=== PATIENT | female | born 1975 | race Caucasian/White ===

== ENCOUNTER → 2017-12-14 | Outpatient (CLI) | payer MEDICARE, OTHER ==
--- NOTE | 2017-12-15 15:45 | NM ---
EXAMINATION TYPE: NM DatScan Brain SPECT DATE OF EXAM: 12/14/2017 COMPARISON: Correlation CT head 05/14/2015 HISTORY: 42-year-old female with tremors TECHNIQUE: 10 drops of Lugol's solution was administered 1 hour prior to injection as a thyroid bloc maty agent. After the administration of 4.48 mCi I-123 Ioflupane DaTscan. Images obtained 3 hours p ost injection. SPECT images of the brain were acquired with axial and coronal reconstructions. FINDINGS: There is normal background activity and normal symmetrical, parietal activity. IMPRESSION: The normal appearance is against a diagnosis of idiopathic Parkinson's disease or a parkinsonian synd yolette. This pattern is seen in healthy individuals and also patient's with essential tremor, drug-bernice tim Parkinsonism, and vascular pseudoparkinsonism.
== END | disposition home or self-care (01) ==
LOC: RADNMMAIN 10:39
PROVIDERS: ATTEND Psychiatry & Neurology Neurology
DX: G25.0 Essential tremor (principal)
CPT/HCPCS: 78607; A9584

== ENCOUNTER → 2018-04-03 | Outpatient (CLI) | payer MEDICARE, OTHER ==
--- NOTE | 2018-04-03 10:57 | CT ---
EXAMINATION TYPE: CT lumbar spine wo con DATE OF EXAM: 04/03/2018 COMPARISON: HISTORY: Low back pain CT DLP: 1402.0 mGycm CONTRAST: None TECHNIQUE: CT of the lumbar spine is performed on a spiral scan at 3 mm thick sections. Reconstructed images are performed in the coronal and sagittal planes. FINDINGS: T12-L1: No focal disc herniation or significant disc bulge is evident. No spinal canal stenosis or neural foraminal stenosis is present. L1-L2: No focal disc herniation or significant disc bulge is evident. No spinal canal stenosis or n eural foraminal stenosis is present L2-L3: No focal disc herniation or significant disc bulge is evident. No spinal canal stenosis or n eural foraminal stenosis is present L3-L4: No focal disc herniation or significant disc bulge is evident. No spinal canal stenosis or n eural foraminal stenosis is present L4-L5: Disc bulge is present through the L4-5 level. This may be slightly greater into the left parac entral left lateral direction. No AP spinal canal stenosis is present. Minimal neural foraminal narro wing on the left is present. L5-S1: No focal disc herniation or significant disc bulge is evident. No spinal canal stenosis or n eural foraminal stenosis is present Vertebral alignment appears normal. Vacuum joint space phenomenon at the sacroiliac joints is present bilaterally. IMPRESSION: Mild asymmetric disc bulging into the left paracentral region L4-5. No spinal canal stenosis or anil inal stenosis is present
--- NOTE | 2018-04-03 11:28 | CT ---
EXAMINATION TYPE: CT cervical spine wo con DATE OF EXAM: 04/03/2018 COMPARISON: None HISTORY: Neck pain CT DLP: 382.7 mGycm CONTRAST: None CT of the cervical spine is performed in the axial plane at 2 mm thick sections. Reconstructed image s in the coronal, and sagittal plane are reviewed on the computer. No acute fractures are evident. Vertebral body alignment is normal. Disc heights are preserved. There is some central disc bulging C5-6 with mild anterior thecal sac co mpression. No cord contact is evident. Vertebral body heights are preserved. No spinal canal stenosis is evident. There is some anterior vertebral body spurring to mild degree so me anterior longitudinal ligament calcification present C3-3 and C5-6. No neural foraminal stenosis is evident. IMPRESSIONS: 1. Mild central disc bulge C5-6 without spinal canal stenosis.
== END | disposition home or self-care (01) ==
LOC: RADCTMAIN 09:30
PROVIDERS: ATTEND Psychiatry & Neurology Neurology
DX: M51.27 Other intervertebral disc displacement, lumbosacral region (principal); M50.222 Other cervical disc displacement at C5-C6 level; Z88.8 Allergy status to other drugs, medicaments and biological substances; Z91.040 Latex allergy status
CPT/HCPCS: 72125; 72131

== ENCOUNTER → 2018-12-06 | Outpatient (CLI) | payer MEDICARE, OTHER ==
--- NOTE | 2018-12-06 08:47 | CT ---
EXAMINATION TYPE: CT brain wo con DATE OF EXAM: 12/06/2018 COMPARISON: 05/14/2015 HISTORY: Seizures CT DLP: 1121 mGycm. Automated Exposure Control for Dose Reduction was Utilized. TECHNIQUE: CT scan of the head is performed without contrast. FINDINGS: There is no acute intracranial hemorrhage, mass effect, or midline shift identified. No s uspicious extra-axial fluid collection. The ventricles and sulci are within normal limits in size. The globes are intact and the visualized sinuses are clear. IMPRESSION: No acute intracranial hemorrhage, mass effect, or midline shift is seen. Exam is [facility] ed from 05/14/2015.
== END | disposition home or self-care (01) ==
LOC: RADCTMAIN 07:52
PROVIDERS: ATTEND Psychiatry & Neurology Neurology
DX: R56.9 Unspecified convulsions (principal); Z91.040 Latex allergy status; Z88.8 Allergy status to other drugs, medicaments and biological substances; Z91.018 Allergy to other foods
CPT/HCPCS: 70450

== ENCOUNTER → 2019-01-23 | Outpatient (CLI) | payer MEDICARE, OTHER | END | disposition home or self-care (01) | LOC: LABWHC1 12:28 | PROVIDERS: ATTEND Otolaryngology | DX: H93.19 Tinnitus, unspecified ear (principal); H91.90 Unspecified hearing loss, unspecified ear | CPT/HCPCS: 36415; 82565; 84520 ==

== ENCOUNTER → 2019-01-26 | Outpatient (CLI) | payer MEDICARE, OTHER ==
--- NOTE | 2019-01-26 10:43 | CT ---
EXAMINATION TYPE: CT iac wo/w con DATE OF EXAM: 01/26/2019 COMPARISON: CT brain dated 12/06/2018 HISTORY: Left ear pain x 3-[address] DLP: 364 mGycm. Automated Exposure Control for Dose Reduction was Utilized. TECHNIQUE: CT scan of internal auditory canal is performed without contrast, thin cut axial images ar e obtained, coronal reformatted images are also reviewed. FINDINGS: The external auditory canals are patent bilaterally. Left mastoid air cells show no evidenc e of abnormal opacification. There is a scant amount of mucosal thickening in the posterior inferior right mastoid air cells. Scant amount of mucosal thickening is also seen within the ethmoid sinuses. Remaining visualized paranasal sinuses are well aerated. The middle ear ossicles are symmetric and unremarkable. There is no evidence of suspicious surroundi ng soft tissue density to suggest cholesteatoma. The scutum is preserved bilaterally. The cochlea a nd the semicircular canals are symmetric and unremarkable. Vestibular aqueduct and internal carotid canal appear unremarkable. Osseous covering of the right superior semicircular canal is thinner than on the left however there is no dehiscence seen. Temporomandibular joints are maintained bilaterally. Visualized portion brain parenchyma is felt wit hin normal limits. No abnormal postcontrast enhancement. IMPRESSION: No significant abnormality seen to account for patient's symptoms. No evidence of middle ear effusion, cholesteatoma, or mass. Scant amount of fluid is incidentally noted within the inferio r posterior right mastoid air cells.
== END | disposition home or self-care (01) ==
LOC: RADCTMAIN 09:33
PROVIDERS: ATTEND Otolaryngology
DX: H93.19 Tinnitus, unspecified ear (principal); H91.90 Unspecified hearing loss, unspecified ear
CPT/HCPCS: 70482; Q9967

== ENCOUNTER 2023-07-08 06:07 | Day surgery (SDC) | payer MEDICARE, OTHER ==
[2023-07-05 15:21] VITALS: BMI 34.2
[~2023-07-08 06:07] MED LIST: LACTATED RINGERS 1,000 ML IV SCH
[2023-07-08 06:56] VITALS: RESP 16; TEMP 97.6
[2023-07-08 06:58] LABS: Glucose,Whole Blood 75 mg/dL (70-110)
[2023-07-08] MEDS ORDERED: LIDOCAINE 1% INJ 10MG/ML (20 ML MDV) ONE (08:03)
[2023-07-08] MEDS ORDERED: MIDAZOLAM 2 MG/2 ML VIAL ONE (08:03)
[2023-07-08] MEDS ORDERED: PROPOFOL 10 MG/ML 20 ML VIAL IV ONE (08:03)
--- NOTE | 2023-07-08 08:27 | P.PCN ---
Date of Procedure: 07/08/23 Procedure(s) Performed: Brief history: Patient is a pleasant 48-year-old white female scheduled for an elective upper endoscopy as well as colonoscopy as a part of evaluation of GERD/change in bowel habits and prior history of colon polyps. She is presently on Protonix 40 mg daily. Procedure performed: Esophagogastroduodenoscopy with biopsy Colonoscopy with snare polypectomy. Preoperative diagnosis: GERD/abdominal pain Change in bowel with the history of colon polyps Anesthesia: MAC Procedure: After informed consent was obtained from the patient was brought into the endoscopy unit and IV sedation was administered by anesthesia under continuous monitoring. Initially upper endoscopy was done. The Olympus GF 160 video endoscope was inserted inserted into the mouth and esophagus intubated without any difficulty and was gradually advanced into the stomach and duodenum and carefully examined. The bulb and second part of the duodenum appeared normal. The scope was then withdrawn into the stomach adequately insufflated with air and upon careful examination the antrum had linear areas of erythema consistent with gastritis and biopsies were done from this area. Mucosa of the body, cardia and fundus appeared normal. The scope was then withdrawn into the esophagus. The GE junction was located at 40 cm to the incisors. There was a 2 mm Wheat's appearing mucosa just proximal to the GE junction which was biopsied. It appeared regular with no erythema erosions or ulcerations. Rest of the esophagus appeared normal. Patient tolerated the procedure well. At this time the patient continued to remain sedation. Initial digital rectal examination was normal. Olympus CF 160 video colonoscope was then inserted into the rectum and gradually advanced to the cecum without any difficulty. Careful examination was performed as the scope was gradually being withdrawn. The prep fair. The cecum, ascending colon, transverse colon, descending colon, sigmoid colon and rectum appeared normal. Retroflexion was performed in the rectum and a 5 mm polyp was noted in the distal rectum that was removed by snare polypectomy.. Patient tolerated the procedure well. Impression: 1. Upper endoscopy revealed mild antral gastritis and short segment Wheat's esophagus 2. Colonoscopy revealed a 5 mm distal rectal polyp status post polypectomy. Recommendations: Findings of this examination were discussed with the patient as well as as well as a family. She was advised to follow with the biopsies results. Continue with Protonix 40 mg daily and follow antireflux measures. If the biopsy result she can have a repeat colonoscopy in 5 years.
[2023-07-08 09:06] VITALS: BP 136/89; PULSE 84
== END 2023-07-08 09:19 | disposition home or self-care (01) ==
LOC: ORWHC2ENDO 06:07
PROVIDERS: ATTEND Internal Medicine Gastroenterology
DX: D12.8 Benign neoplasm of rectum (principal); K31.9 Disease of stomach and duodenum, unspecified; K58.1 Irritable bowel syndrome with constipation; K21.9 Gastro-esophageal reflux disease without esophagitis; K22.70 Barrett's esophagus without dysplasia; Z86.010 Personal history of colon polyps; I10 Essential (primary) hypertension; E11.9 Type 2 diabetes mellitus without complications; Z86.73 Personal history of transient ischemic attack (TIA), and cerebral infarction without residual deficits; G40.909 Epilepsy, unspecified, not intractable, without status epilepticus; G43.911 Migraine, unspecified, intractable, with status migrainosus; Z79.4 Long term (current) use of insulin; Z79.83 Long term (current) use of bisphosphonates; Z88.8 Allergy status to other drugs, medicaments and biological substances; Z91.040 Latex allergy status; Z79.899 Other long term (current) drug therapy
CPT/HCPCS: 88305; 45385; 43239; J2250; J2001; J2704

== ENCOUNTER → 2024-01-16 | Outpatient (CLI) | payer MEDICARE, OTHER ==
--- NOTE | 2024-01-16 13:30 | CT ---
EXAMINATION TYPE: CT lumbar spine wo con CT DLP: 1005 mGycm, Automated exposure control for dose reduction was used. DATE OF EXAM: 01/16/2024 1:23 PM COMPARISON: 04/03/2018. CLINICAL INDICATION:Female, 48 years old with history of M51.36 OTHER INTERVERTEBRAL DISC DEGENERATIO N, LUM; back pain TECHNIQUE: Multiple axial images were obtained from the midportion of T11 through the sacroiliac nicole nts. Soft tissue and bone windows in coronal and sagittal planes were obtained and reviewed. Contrast used: mL of , (None, if empty). Oral contrast used: (None, if empty). FINDINGS: Alignment: There are 5 lumbar type vertebral bodies within normal alignment. Bone: Mild multilevel level degeneration changes with osteophyte formation facet arthropathy. Discs: T12-L1: No spinal canal or neural foraminal stenosis is identified. L1-L2: No spinal canal or neural foraminal stenosis is identified. L2-L3: No spinal canal or neural foraminal stenosis is identified. L3-L4: Facet joint arthropathy and disc bulging result with mild spinal canal stenosis and mild bilat eral neural foraminal stenosis. L4-L5: Facet joint arthropathy and disc bulging result with mild spinal canal stenosis and mild bilat eral neural foraminal stenosis. L5-S1: No spinal canal or neural foraminal stenosis is identified. Other: Nonobstructing right 2 mm renal calculus. IMPRESSION: 1. No evidence for spinal fracture. 2. Mild degeneration changes throughout the spine with evidence of significant spinal canal or neural foraminal stenosis.
== END | disposition home or self-care (01) ==
LOC: RADCTMAIN 13:01
PROVIDERS: ATTEND Psychiatry & Neurology Neurology
DX: M51.36 Other intervertebral disc degeneration, lumbar region (principal); M47.816 Spondylosis without myelopathy or radiculopathy, lumbar region
CPT/HCPCS: 72131